=== PATIENT | female | born 1985 | race Caucasian/White ===

== ENCOUNTER 2019-02-11 21:18 | Emergency (ER) | payer BC ==
--- NOTE | 2019-02-11 21:22 | ER Report ---
History and Physical Time Seen By MD: 21:20 HPI/ROS CHIEF COMPLAINT: Cough, shortness of breath HISTORY OF PRESENT ILLNESS: 34-year-old female presents ambulatory to the ER with difficulty breathing since earlier today. Patient began having rhinitis and congestion yesterday. She states her children have been sick. She recently moved here from [place]. She denies any history of reactive airways disease in herself. Her children have not had croupy symptoms. Patient has fever on arrival 100.3. She had some productive yellows viewed them earlier today. It has resolved. REVIEW OF SYSTEMS: Respiratory: As above Cardiovascular: No chest pain, no palpitations. Gastrointestinal: No vomiting, no abdominal pain. Musculoskeletal: No back pain. Allergies: Coded Allergies: codeine (Verified Adverse Reaction, Unknown, VOMITING, 02/11/19) Home Meds Reported Medications Multivitamin (MULTIVITAMINS) 1 Each Capsule, 1 EACH PO QDAY, CAPSULE 02/11/19 Reviewed Nurses Notes: Yes Old Medical Records Reviewed: Yes Constitutional Vital Sign - Last 24 Hours 02/11/19 02/11/19 02/11/19 02/11/19 21:30 21:33 21:33 21:48 Temp 100.3 Pulse 117 113 117 Resp 18 B/P (MAP) 117/80 (92) 117/80 Pulse Ox 91 93 89 O2 Delivery Room Air 02/11/19 02/11/19 02/11/19 02/11/19 21:51 21:51 22:00 22:03 Pulse 110 126 Resp 18 B/P (MAP) 115/93 (100) Pulse Ox 90 89 O2 Delivery Room Air 02/11/19 02/11/19 02/11/19 02/11/19 22:03 22:08 22:23 22:30 Pulse 126 120 115 Resp 18 B/P (MAP) 117/72 (87) Pulse Ox 90 91 Physical Exam General Appearance: The patient is alert, has no immediate need for airway protection and no current signs of toxicity. Vital signs stable, temperature 100.3, pulse ox normal HEENT: Pupils equal and round no injection. TMs normal, oropharynx with mild erythema, no exudate or petechiae Respiratory: Chest is non tender, lungs are clear to auscultation., Faint expiratory wheezing Cardiac: regular rate and rhythm Gastrointestinal: Abdomen is soft and non tender, no masses, bowel sounds normal. Musculoskeletal: Neck: Neck is supple and non tender. No lymphadenopathy Extremities have full range of motion and are non tender. No edema, no calf tenderness Skin: No rashes or lesions. DIFFERENTIAL DIAGNOSIS: After history and physical exam differential diagnosis was considered for shortness of breath including but not limited to pulmonary infectious process, COPD, asthma, pulmonary embolus and congestive heart failure. Medical Decision Making ED Course/Re-evaluation ED Course Patient was admitted to an examination room. H&P was done. The differential diagnoses was considered. Patient with difficulty breathing and repetitive cough. She appears to have bronchospasm. Patient's treated with albuterol nebulizer treatment. And Decadron 8 mg by mouth. Patient has a viral syndrome and I do not think antibiotics will be effective. She is discharged with an albuterol inhaler. She is advised to follow-up with primary care if unimproved in 3-5 days. Decision to Disposition Date: Feb 11, 2019 Decision to Disposition Time: 22:31 Depart Departure Latest Vital Signs Vital Signs Date Time Temp Pulse Resp B/P (MAP) Pulse Ox O2 Delivery O2 Flow Rate FiO2 02/11/19 22:30 117/72 (87) 02/11/19 22:23 115 91 02/11/19 22:03 18 02/11/19 21:51 Room Air 02/11/19 21:33 100.3 Impression: Primary Impression: Viral upper respiratory infection Additional Impression: Bronchospasm Condition: Improved Disposition: HOME OR SELF-CARE Patient Instructions: Bronchospasm (ED), Upper Respiratory Infection (ED) Additional Instructions: Use Robitussin-DM for cough suppressant Take ibuprofen for anti-inflammatory pain relief Follow-up with primary care if unimproved in 3-5 days Return to the ER for any worsening Problem Qualifiers JERAMY RUTHERFORD DO Feb 11, 2019 21:22
[2019-02-11] MEDS ORDERED: MULT1CAP59 PO (21:38)
[2019-02-11] MEDS ORDERED: ALBUTEROL/IPRATROPIUM 3 ML NEB NEB ONE (21:40)
[2019-02-11] MEDS ORDERED: DEXAMETHASONE 4 MG TAB PO ONE (22:10)
[2019-02-11] MEDS ORDERED: ALBUTEROL 2.5 MG/3 ML NEB NEB ONE (22:10)
[2019-02-11] MEDS ORDERED: ALBUTEROL 8 GM INHALER INH ONE (22:15)
[2019-02-11 22:30] VITALS: BP 117/72
== END 2019-02-11 22:52 | disposition home or self-care (01) ==
LOC: ER 21:47
DX: J06.9 Acute upper respiratory infection, unspecified (principal); J98.01 Acute bronchospasm
CPT/HCPCS: 94640; 99283; J7620; J8540